=== PATIENT | female | born 1980 | race Caucasian/White ===

== ENCOUNTER 2021-07-11 20:32 | Emergency (ER) | payer MEDICAID ==
[~2021-07-11] VITALS: Ht 157.5 cm; Wt 68.0 kg
[2021-07-11] MEDS ORDERED: SULF400T11 PO (21:43)
[2021-07-12] VITALS: BP 144/86
== END 2021-07-12 00:14 | disposition home or self-care (01) ==
LOC: ER 20:47
DX: L02.211 Cutaneous abscess of abdominal wall (principal)

== ENCOUNTER 2022-12-23 18:21 | Emergency (ER) | payer MEDICAID ==
[~2022-12-23] VITALS: Ht 157.5 cm; Wt 73.7 kg
[~2022-12-23 18:21] MED LIST: SULF400T11 PO
[2022-12-23] MEDS ORDERED: cloNIDine HCL 0.1 MG TAB PO ONE (19:00)
[2022-12-23 19:24] LABS: Basophils # (auto) 0.1 10 ^3/uL (0-0.2); Basophils % (auto) 0.8 % (0.0-2.0); Eosinophils # (auto) 0.1 10 ^3/uL (0-0.8); Eosinophils % (auto) 0.9 % (0.0-7.0); Hematocrit 42.1 % (36.0-46.0); Hemoglobin 13.7 g/dL (12.2-16.2); Lymphocytes # (auto) 2.3 10 ^3/uL (0.4-5.4); Lymphocytes % (auto) 20.7 % (10.0-50.0); Mean Corpuscular Hemoglobin 29.4 pg (28.0-32.0); Mean Corpuscular Hgb Conc. 32.7 g/dL (32.0-36.0); Mean Corpuscular Volume 90.1 fL (80.0-100.0); Monocytes # (auto) 0.9 10 ^3/uL (0-1.3); Monocytes % (auto) 7.8 % (0.0-12.0); Neutrophils # (auto) 7.8 10 ^3/uL (1.6-8.6); Neutrophils % (auto) 69.8 % (37.0-80.0); Nucleated Red Blood Cells % 0.1 %; Red Blood Cells 4.67 10^6/uL (4.0-5.20); Red Cell Distribution Width 16.2 % (11.8-14.3); White Blood Cell 11.2 10^3/uL (4.4-10.8)
[2022-12-23 19:39] LABS: Alanine Aminotransferase 30 U/L (7-40); Albumin 4.7 g/dL (3.2-4.8); Alkaline Phosphatase 134 U/L (46-116); Anion Gap 6 (5-15); Aspartate Aminotransferase 19 U/L (13-40); BUN/Creatinine Ratio 13.3 (10.0-20.0); Bilirubin, Total 0.6 mg/dL (0.2-1.0); Blood Urea Nitrogen 12 mg/dL (9-23); Calcium 9.9 mg/dL (8.7-10.4); Carbon Dioxide 28 mmol/L (20-30); Chloride 106 mmol/L (98-107); Glucose 90 mg/dL (74-106); Potassium 4.4 mmol/L (3.5-5.1); Sodium 140 mmol/L (136-145); Total Protein 7.6 g/dL (5.7-8.2)
[2022-12-23] MEDS ORDERED: ACETAMINOPHEN 325 MG TAB PO ONE (20:00)
[2022-12-23] MEDS ORDERED: METOCLOPRAMIDE HCL 10 MG TAB PO ONE (20:00)
[2022-12-23] MEDS ORDERED: IBUPROFEN 600 MG TAB PO ONE (20:00)
[2022-12-23] MEDS ORDERED: MECLIZINE HCL 25 MG TAB PO ONE (20:00)
[2022-12-23 21:49] VITALS: BP 168/114; PULSE 99; RESP 18; TEMP 98; O2SAT 99
[2022-12-23] MEDS ORDERED: METO-281 PO (21:55)
[2022-12-23] MEDS ORDERED: SCOP1DIS9 TD (21:55)
[2022-12-23] MEDS ORDERED: MECL1TAB32 PO (21:55)
== END 2022-12-23 22:07 | disposition home or self-care (01) ==
LOC: ER 18:21
DX: R42 Dizziness and giddiness (principal)
CPT/HCPCS: 36415; 70450; 71045; 80053; 80320; 83735; 83880; 84484; 85025; 99284; J8597

== ENCOUNTER 2023-01-30 09:46 | Emergency (ER) | payer MEDICAID ==
[~2023-01-30] VITALS: Ht 157.5 cm; Wt 74.2 kg
[~2023-01-30 09:46] MED LIST changes: +MECL1TAB32 PO; +METO-281 PO; +SCOP1DIS9 TD
[2023-01-30 10:58] VITALS: BP 175/97; PULSE 111; RESP 21; TEMP 98; O2SAT 99
[2023-01-30 11:19] LABS: Basophils # (auto) 0.1 10 ^3/uL (0-0.2); Basophils % (auto) 0.8 % (0.0-2.0); Eosinophils # (auto) 0.1 10 ^3/uL (0-0.8); Eosinophils % (auto) 1.5 % (0.0-7.0); Hemoglobin 13.1 g/dL (12.2-16.2); Lymphocytes # (auto) 1.6 10 ^3/uL (0.4-5.4); Lymphocytes % (auto) 22.6 % (10.0-50.0); Mean Corpuscular Hemoglobin 28.5 pg (28.0-32.0); Mean Corpuscular Volume 89.2 fL (80.0-100.0); Monocytes # (auto) 0.9 10 ^3/uL (0-1.3); Monocytes % (auto) 11.8 % (0.0-12.0); Neutrophils # (auto) 4.6 10 ^3/uL (1.6-8.6); Neutrophils % (auto) 63.3 % (37.0-80.0); Red Blood Cells 4.59 10^6/uL (4.0-5.20); Red Cell Distribution Width 16.2 % (11.8-14.3); White Blood Cell 7.3 10^3/uL (4.4-10.8)
[2023-01-30 11:39] LABS: Alanine Aminotransferase 62 U/L (7-40); Albumin 4.4 g/dL (3.2-4.8); Alkaline Phosphatase 123 U/L (46-116); Anion Gap 6 (5-15); Aspartate Aminotransferase 54 U/L (13-40); BUN/Creatinine Ratio 17.6 (10.0-20.0); Bilirubin, Total 0.3 mg/dL (0.2-1.0); Blood Urea Nitrogen 12 mg/dL (9-23); Calcium 9.3 mg/dL (8.5-10.1); Carbon Dioxide 25 mmol/L (20-30); Chloride 109 mmol/L (98-107); Glucose 91 mg/dL (74-106); Potassium 4.6 mmol/L (3.5-5.1); Sodium 140 mmol/L (136-145)
[2023-01-30 11:40] LABS: Total Protein 7.3 g/dL (5.7-8.2)
[2023-01-30] MEDS ORDERED: cefTRIAXone SOD 1,000 MG VL IM ONE (13:30)
[2023-01-30] MEDS ORDERED: PROM1SOL4 PO (13:30)
== END 2023-01-30 13:33 | disposition home or self-care (01) ==
LOC: ER 09:46
DX: J40 Bronchitis, not specified as acute or chronic (principal); R07.89 Other chest pain
CPT/HCPCS: 36415; 71046; 80053; 85025; 93005; 96372; 99285; J0696